=== PATIENT | male | born 1940 | race Caucasian/White ===

== ENCOUNTER → 2016-10-29 | Outpatient (CLI) | payer OTHER, BC ==
[~2016-10-29] VITALS: Ht 175.3 cm; Wt 77.1 kg
[~2016-10-29] MED LIST: ACYCLOVIR 400400 MG; ADULT LOW DOSE81 MG PO; ALLERGY MED; ALLERGY10 M1 PO; ARICEPT10 M1 PO; ASPIRIN81 M2 PO; BACLOFEN 10MG T10 M1 PO; BACLOFEN 10MG T10 MG PO; CARISOPRODOL 3350 MG PO; CENTRUM SILVER1 EAC4 PO; COMPOUNDING CREAM; COZAAR 25 MG TA25 M1 PO; CYMBALTA30 MG PO; CYMBALTA60 MG PO; DEXILANT30 MG PO; DEXILANT60 MG PO; EPIPEN 2-P0.3 MG/0.3 IM; FISH OIL 1,0001 EAC5 PO; FISH OIL 1,001000 M2 PO; FLONASE 0.05%50 MCG NASAL; GLUCOSAMINE HC500 MG PO; HYDROCODONE-AP1 EAC6 PO; IBUPROFEN 800800 M1 PO; MIRALAX255 GM PO; MOBIC15 MG PO; NAPROSYN500 MG PO; NEURONTIN 300300 M1 PO; NORCO 5-325 TA1 EACH PO; NORCO 7.5-3251 EACH PO; NORVASC5 MG PO; OS-CAL 500+D C1 EACH PO; PANTOPRAZOLE SO40 M1 PO; PERCOCET 5-3251 EACH PO; PRAVASTATIN SOD10 MG PO; RA GLUCOSAMINE1 EAC6 PO; RESTASIS1 EACH OP; STOOL SOFTENER1 EAC2 PO; TAMSULOSIN HCL0.4 MG PO; TRAMADOL 50 MG50 MG PO; TRAMADOL200 MG PO; TRILEPTAL150 MG PO; ULTRAM ER200 MG PO; XALATAN2.5 ML OP; [UNRECOGNIZED DRUG - OTHER]; [UNRECOGNIZED DRUG - OTHER] TP
--- NOTE | ~2016-10-29 | HPC ---
[facility] [place] [address] PAIN MANAGEMENT CONSULTATION Name: MARJAN HODGES Crescencio Room #: REG Dayanna Jhaveri#: [id number] Admission: 10/29/16 Attend Phys: Prince Miller DO Discharge: Date of : 42 Report #: [id number] THIS REPORT FOR: //name// CC: Kathy Miller DATE OF SERVICE: 10/29/2016 The patient is a 76-year-old gentleman seen a little greater than a year ago in August 2015. He is seen for symptomatic cervical radiculopathy at that time, given cervical epidural injection, somewhat lost to follow up. The patient returns to pain clinic today complaining of multiple and disparate complaints. In the interval, since we saw him, he had bilateral carpal tunnel surgery in August 2015 and left shoulder surgery in January 2016. He did well with the shoulder though he is complaining of pain in the left shoulder, neck, upper back. He notes the pain is exacerbated with any and all movement. He describes pain as sharp and aching, rates it as 7-8 on a 0-10 visual analog scale. Again, exacerbated with activity including lifting his left arm. The patient did get some recent studies, MRI of the cervical spine was accomplished on 10/17/2016, ordered by Dr. Eran Rios, impression is multilevel degenerative changes throughout the cervical spine with multilevel posterior disk osteophyte complexes contributing to bilateral foraminal narrowing at multiple levels, most prominently at C5-C6 and C6-C7, right greater than left, this would be compatible with more right C5 and C6 for cervical radicular symptoms. EMG was obtained by Dr. Wiley Sagastume on 10/22/2016. Studies suggest median nerve entrapment, status post carpal tunnel surgery. There is ongoing membrane instability in the thenar muscles making it unlikely that the patient has recurrent median nerve entrapment at the wrist. The median nerve parameters are similar to his prior study. His chronic right cervical radiculopathy is noted, most likely involving the C6-C7 roots. PHYSICAL EXAMINATION: Shows a 76-year-old gentleman, BMI is 25.1 kilograms per meter squared. Blood pressure is 146/84, pulse 63, respirations 16. Cranial nerves 2-12 are grossly intact. Cervical range of motion exacerbates pain with a modestly positive limits. Very tender in the splenius capitis, thoracic paravertebral muscles and trapezius bilaterally. This does reproduce pain. Hand grasp is diminished on both sides, thenar eminence appears to be wasting bilaterally, left little greater than right. Passive rotation of the left shoulder is unremarkable, active rotation exacerbates pain. He is little weaker on the left side. He is right hand dominant. ASSESSMENT: 1. Symptomatic cervical radiculopathy by history. Possible component of radicular symptoms ongoing. [facility] [address] [place] [address] PAIN MANAGEMENT CONSULTATION Name: MARJAN HODGES Room #: REG PIERCE Jhaevri#: [id number] Admission: 10/29/16 Attend Phys: Prince Miller DO Discharge: Date of : 42 Report #: [id number] 2. New diagnosis of myofascial pain syndrome in a patient with prior history also of lumbar radiculopathy. 3. Anxiety and depression. RECOMMENDATIONS: 1. We will renew patient's meloxicam to 15 mg 1 a day. We will start Cymbalta 30 mg once a day for chronic widespread pain and what patient self admits is a low level of anxiety and depression. Follow up in 3-4 weeks to evaluate efficacy of medication changes. 2. Acute exacerbation of myofascial pain, new diagnosis. 3. Trigger point injections x 4 today. PROCEDURE NOTE: After written informed consent was obtained, the patient was placed in prone position. Trigger points were identified in the bilateral trapezius and bilateral upper thoracic paravertebral muscles were identified, cleansed with alcohol, using a 25-gauge needle, 40 mg triamcinolone plus 4 mL of 0.5% preservative-free bupivacaine plus 4 mL of 1.5% preservative-free Xylocaine with 1:200,000 epinephrine was injected at all four trigger points distributed equally amongst the 4 discrete muscle groups, needles removed. The area was cleansed, Band-Aids applied. The patient monitored for an appropriate period of time, discharged in good and stable condition. <ELECTRONICALLY SIGNED> By: Prince Miller DO 10/31/16 0758 1511 0409 Prince Miller DO /nt
[2016-10-29 14:01] VITALS: BP 146/84
== END | disposition home or self-care (01) ==
LOC: PAIN 06:56
DX: M79.1 Myalgia (principal); M54.12 Radiculopathy, cervical region; F41.9 Anxiety disorder, unspecified; F32.9 Major depressive disorder, single episode, unspecified; Z87.891 Personal history of nicotine dependence

== ENCOUNTER → 2016-11-19 | Outpatient (CLI) | payer OTHER, BC ==
[~2016-11-19] VITALS: Ht 175.3 cm; Wt 75.8 kg
--- NOTE | ~2016-11-19 | HPC ---
[facility] [place] [address] PAIN MANAGEMENT CONSULTATION Name: MARJAN HODGES Crescencio Room #: REG PIERCE Jhaveri#: [id number] Admission: 11/19/16 Attend Phys: Prince Miller DO Discharge: Date of : 42 Report #: [id number] THIS REPORT FOR: //name// CC: Kathy Miller DATE OF SERVICE: 11/19/2016 The patient is a 76-year-old gentleman, prior seen in the pain clinic 10/29/2016. He has history of cervical radiculopathy, myofascial pain component, depression and cervical spondylosis. Last visit, I started the patient on Cymbalta 30 mg 1 a day for ongoing pain and depression. We did trigger point injections to help with some of his myofascial pain. Returns to pain clinic today. Pain is primarily superior left neck, exacerbated with rotation and side bending. Upper extremity strength is symmetric, no neuropathic symptoms are noted. ASSESSMENT: Symptomatic cervical spondylosis by clinical exam and history, left C2-C3 and C3-C4. Prior diagnostic studies have noted cervical spondylosis throughout the cervical spine. ASSESSMENT: Symptomatic cervical spondylosis. RECOMMENDATION: Left C2-C3, C3-C4 facet joint injections under fluoroscopy today. Followup p.r.n. PROCEDURE NOTE: Lumbar spondylosis. PROCEDURE: Left C2-C3 and C3-C4 cervical facet joint injections under fluoroscopy. PROCEDURE: After written informed consent was obtained, the patient was taken to the fluoroscopy suite and placed in prone position. After sterile prep and drape, skin wheal was raised. A 25-gauge needle was placed to contact posterior aspect of the left C2-C3 and left C3-C4 cervical facets. AP and lateral projections showed good needle placement at the posterior aspect and along the lateral mass mid portion A 2 mg of Decadron plus 1 mL of 0.5% preservative-free bupivacaine was injected at each site. Both needles removed. The area was cleansed, Band-Aids applied. Fluoroscopy time was approximately 15 seconds. The patient monitored for an appropriate period of time, discharged in good and stable condition, noting incremental improvement of baseline pain. <ELECTRONICALLY SIGNED> By: Prince Miller DO 11/21/16 0859 1536 0404 Prince Miller DO /nt
[2016-11-19 12:34] VITALS: BP 155/86
== END ==
LOC: PAIN 06:10
DX: M47.812 Spondylosis without myelopathy or radiculopathy, cervical region (principal); M19.90 Unspecified osteoarthritis, unspecified site; Z87.891 Personal history of nicotine dependence

== ENCOUNTER 2016-12-07 12:30 | Emergency (ER) | payer OTHER, BC ==
[~2016-12-07] VITALS: Ht 175.3 cm; Wt 74.8 kg
[2016-12-07] MEDS ORDERED: NORCO 5-325 TA1 EACH PO (15:06)
[2016-12-07] MEDS ORDERED: PHENERGAN 25 MG25 M1 PO (17:06)
== END 2016-12-07 18:12 | disposition home or self-care (01) ==
LOC: ER 12:30
DX: S43.084A Other dislocation of right shoulder joint, initial encounter (principal); Z98.890 Other specified postprocedural states; Z87.891 Personal history of nicotine dependence; W01.0XXA Fall on same level from slipping, tripping and stumbling without subsequent striking against object, initial encounter; Y93.89 Activity, other specified; Y92.89 Other specified places as the place of occurrence of the external cause; Y99.8 Other external cause status

== ENCOUNTER → 2017-04-25 | Outpatient (CLI) | payer OTHER, BC ==
[~2017-04-25] VITALS: Ht 175.3 cm; Wt 77.9 kg
[~2017-04-25] MED LIST changes: +MIRALAX17 GM PO; +PHENERGAN 25 MG25 M1 PO; +TRAMADOL HCL E200 M1 PO
--- NOTE | ~2017-04-25 | HPC ---
[facility] [place] [address] PAIN MANAGEMENT CONSULTATION Name: MARJAN HODGES Crescencio Room #: REG PIERCE Jhaveri#: [id number] Admission: 04/25/17 Attend Phys: Prince Miller DO Discharge: Date of : 42 Report #: [id number] THIS REPORT FOR: //name// CC: Kathy Miller DATE OF SERVICE: 04/25/2017 HISTORY OF PRESENT ILLNESS: The patient is a pleasant 77-year-old gentleman, prior seen in the pain clinic on 04/08/2017, having left cervical mediated pain secondary to cervical spondylosis. I did a left C2-C3 and left C3-C4 facet joint injection under fluoroscopy. The patient returns to the pain clinic today noting he had very good yet short-term relief following that injection. We elected to proceed with left C2, C3 and C4 medial branch dorsal rami diagnostic block today. The patient notes subjective pain score as 6 on a VAS at present. Again, pain is in the primary left neck and shoulder. Pain in the left shoulder and neck exacerbated with cervical rotation. Also, gets some pain with abduction of the left arm. PHYSICAL EXAMINATION: VITAL SIGNS: Show stable as noted on the EMR. MUSCULOSKELETAL: Cervical range of motion is limited, tender over the cervical facets. Subjective pain going into the "cape" area of the shoulder, though no discernible 2-point discrimination or tactile reproduction of pain over the shoulder. ASSESSMENT: Symptomatic cervical spondylosis. PROCEDURE: Left C2, C3 and C4 medial branch dorsal rami diagnostic block in consideration of radiofrequency neurolysis. DESCRIPTION OF PROCEDURE: After written informed consent was obtained, the patient was taken to the fluoroscopy suite and placed in prone position. After sterile prep and drape, skin was raised. A 22-gauge stylet needle was placed to contact superior articular process of C2, C3 and C4. AP and lateral projections showed good placement adjacent to the C2, C3 and C4 medial branch dorsal rami nerves. A 1 mL of 0.5% preservative-free bupivacaine mixed with 0.5% preservative-free Xylocaine with 1:200,000 epinephrine was injected at each site. All 3 needles were removed. The area was cleansed, Band-Aids applied. The patient monitored for an appropriate period of time, discharged in good and stable condition, noting significant improvement of baseline pain. He was requested to note hourly pain score for the next 3 hours [place] [address] PAIN MANAGEMENT CONSULTATION Name: MARJAN HODGES Room #: REG PIERCE Jhaveri#: [id number] Admission: 04/25/17 Attend Phys: Prince Miller DO Discharge: Date of : 42 Report #: [id number] that report on the nurse's phone line. We will include that in the medical record. Plan on moving forward with RFL next visit. <ELECTRONICALLY SIGNED> By: Prince Miller DO 04/26/17 0731 1220 0101 Prince Miller DO /esequiel
[2017-04-25 10:42] VITALS: BP 128/77
== END | disposition home or self-care (01) ==
LOC: PAIN 06:40
DX: M47.812 Spondylosis without myelopathy or radiculopathy, cervical region (principal); G89.29 Other chronic pain; Z87.891 Personal history of nicotine dependence; Z79.899 Other long term (current) drug therapy; Z79.82 Long term (current) use of aspirin; Z98.890 Other specified postprocedural states

== ENCOUNTER → 2017-05-06 | Outpatient (CLI) | payer OTHER, BC ==
[~2017-05-06] VITALS: Ht 175.3 cm; Wt 76.8 kg
--- NOTE | ~2017-05-06 | HPC ---
[facility] [place] [address] PAIN MANAGEMENT CONSULTATION Name: MARJAN HODGES Crescencio Room #: REG PIERCE Jhaveri#: [id number] Admission: 05/06/17 Attend Phys: Prince Miller DO Discharge: Date of : 42 Report #: [id number] THIS REPORT FOR: //name// CC: Kathy Miller DATE OF SERVICE: 05/06/2017 The patient is a 77-year-old gentleman being treated for symptomatic cervical spondylosis. He had good relief with cervical facet joint injections on 04/08/2017 (left C2-C3 and C3-C4). The relief was good yet transient. I proceeded with medial branch dorsal rami diagnostic blocks, left C2, C3, and C4 on 04/25/2017. The patient again had good predictable relief of neck, shoulder, and arm pain; however, again was transient. He returns to Pain Clinic today desirous of radiofrequency neurolysis of same. Does note that he has some episodic lancinating pain in the left arm and down into the hand. PHYSICAL EXAMINATION: Does show adequate grasp strength that is symmetric, left and right, preserved yet diminished deep tendon reflexes of the biceps, triceps, and brachioradialis. Negative Tinel. Modestly positive limit. ASSESSMENT: Symptomatic cervical radiculopathy on clinical exam and history with symptomatic cervical spondylosis following good transient relief with medial branch dorsal rami diagnostic block. RECOMMENDATION: Proceed with radiofrequency neurolysis of same. PROCEDURE NOTE: Radiofrequency neurolysis left C2, C3 and C4 under fluoroscopy. PROCEDURE: After written informed consent was obtained, the patient was taken to the fluoroscopy suite and placed in prone position. After sterile prep and drape, skin was raised. Three skin wheals with Xylocaine were raised. Three 10-mm RFK needle was placed to contact superior articular process of C2, C3 and C4. AP and lateral projections showed good needle placement adjacent to the C2, C3 and C4 medial branch dorsal rami nerves. After appropriate initial impedance, sensory and motor testing, 1 mL of 1% preservative-free Xylocaine was injected through each of the three needles. Each needle was then heated to 80 degrees centigrade for 90 seconds. A 2 mg of Decadron plus 1 mL of 0.5% preservative-free bupivacaine was then injected through all three needles. All three needles removed. The area was cleansed, Band-Aids applied. Fluoroscopy time was under 20 seconds. The patient was [place] [address] PAIN MANAGEMENT CONSULTATION Name: MARJAN HODGES Crescencio Room #: REG CLI Emilio#: [id number] Admission: 05/06/17 Attend Phys: Prince Miller DO Discharge: Date of : 42 Report #: [id number] room, monitored for an appropriate period of time, discharged in good and stable condition. Follow up in 1 month for reevaluation. By: [id number] Prince Miller DO /esequiel
[2017-05-06 12:28] VITALS: BP 149/85
== END | disposition home or self-care (01) ==
LOC: PAIN 07:10
DX: M47.22 Other spondylosis with radiculopathy, cervical region (principal); M54.16 Radiculopathy, lumbar region; Z87.891 Personal history of nicotine dependence; M47.812 Spondylosis without myelopathy or radiculopathy, cervical region

== ENCOUNTER → 2017-10-17 | Outpatient (CLI) | payer OTHER, BC ==
[~2017-10-17] VITALS: Ht 175.3 cm; Wt 80.2 kg
[~2017-10-17] MED LIST changes: +TIZANIDINE4 MG/1 TA1 PO; +TUMERIC PO
--- NOTE | ~2017-10-17 | HPC ---
[facility] [place] [address] PAIN MANAGEMENT CONSULTATION Name: MARJAN HODGES Crescencio Room #: REG PIERCE Jhaveri#: [id number] Admission: 10/17/17 Attend Phys: Prince Miller DO Discharge: Date of : 42 Report #: [id number] THIS REPORT FOR: //name// CC: Kathy Milelr DATE OF SERVICE: 10/17/2017 The patient is a pleasant 77-year-old gentleman, prior seen for cervical spondylotic concerns. Had good relief with left C2-C3 and C3-C4 cervical facet joint injections in March. Good transient relief with medial branch dorsal rami diagnostic block C2, C3 and C4 on 04/25/2017, progressed to radiofrequency neurolysis 05/06/2017. Somewhat lost to follow up. Returns to pain clinic today noting a different complaint, he has pain in the upper back, left side. Rates his pain a 9 on VAS, medial to the scapula, is exacerbated with raising his left arm and activity. Some relief with medication and heat. He does use Cymbalta 60 mg 1 a day, tramadol 200 mg extended release daily and hydrocodone rarely for breakthrough pain. PHYSICAL EXAMINATION: Shows a 77-year-old gentleman, BMI is 26.1 kilograms per meter squared. He is alert and oriented to person, place and time, judged to be a reasonable historian. Blood pressure 151/81, pulse 64, respirations 16. Cervical range of motion is modestly diminished. Neck pain appears less on physical exam, though he notes no significant relief following the radiofrequency lesioning. Does have decreased range of motion right shoulder, significant decreased strength to right arm resistance to rotation. He has fallen and does have on MRI (10/11/2017) massive full thickness full with a tear involving the distal, anterior, mid and posterior supraspinatus tendon as well as the infraspinatus tendon with tendon retraction medial to the level of the glenohumeral joint, development of moderate to severe supraspinatus and infraspinatus muscle atrophy. He has noted this is on the right shoulder, contralateral to the patient's primary pain concern. Does have a good range of motion, left shoulder and arm. Deep tendon reflexes are preserved. Has exquisite tenderness muscle group medial to the left scapula and overlying latissimus dorsi. Diffuse tenderness across the low back. No discrete trigger points noted. Gait is tandem. Lower extremity strength is preserved. IMPRESSION: Myofascial pain, clinical exam and history. The patient with prior history of cervical spondylosis, chronic pain syndrome requiring complex medication management. We reviewed the fact that opiate medications are being used to provide analgesia adequate to support activities of daily living, not attempting to achieve a specific pain score on the 0-10 Visual Analog Scale. The current opiate medications are providing sufficient analgesia to allow the patient to [address] [address] PAIN MANAGEMENT CONSULTATION Name: CARROLLMARJAN Room #: REG CL Emilio#: [id number] Admission: 10/17/17 Attend Phys: Prince Miller DO Discharge: Date of : 42 Report #: [id number] participate in activities of daily living. The patient is not exhibiting any aberrant behavior suggestive of drug diversion. The patient is not having any adverse reactions to medications. The patient is not suffering from daytime somnolence or mental acuity changes. The patient is managing opiate-induced constipation with appropriate uskt-twa-vytffse agents and dietary considerations. The patient was counseled on concern for caution with operating a motor vehicle while using opiate medications. A physical exam was performed and the patient's functional status was evaluated. All patients with back pain were advised against the bed rest greater than 4 days and were advised to return to normal activities. Pain score assessment was noted and the treatment plan was reviewed with the patient. All current medications, both prescribed and OTC were reviewed and reconciled on the electronic medical record. Tobacco screening was accomplished and smoking cessation was advised when indicated. BMI was noted and diet/exercise modification was recommended for all patients following outside normal parameters. I reviewed with the patient today their responsibilities to safeguard prescription medications, reviewed their responsibility to utilize medications only as prescribed by the physician. They are to seek and receive pain medications only from 1 physician group ( [facility]). They are to use 1 pharmacy and keep the clinic informed if they change pharmacies. Their responsibilities include making followup visits in a timely fashion and to avoid abrupt discontinuation of medication usage. Their responsibilities further include bringing their medications (bottles from the pharmacy with residual pills) to the visit for possible confirmation of pill counts and the patient understands it is their responsibility to submit to random drug screens to ensure both that the medications prescribed are present, and that no other controlled substances are present. All prescriptions provided today were generated electronically. RECOMMENDATIONS: 1. Continue tramadol extended release 200 mg 1 a day, taken the liberty of writing for a 90-day prescription with 1 refill. 2. Continue Cymbalta. We will increase from 60 mg 1 a day to b.i.d. in consideration of the patient's ongoing pain, anxiety and myofascial pain component. 3. We will trial tizanidine 4 mg a half to one tablet 3 times a day with 1 at bedtime, 60 tablets, 1 refill. Lastly, we will renew hydrocodone 5/325, he uses this p.r.n. infrequently. Last prescription for 90 tablets was generated last April. He still has a few tablets left. ASSESSMENT #2: Acute exacerbation of myofascial pain, left mid back latissimus dorsi and mid thoracic paravertebral muscles. [facility] [address] [place] [address] PAIN MANAGEMENT CONSULTATION Name: MARJAN HODGES Room #: [facility] [id number] Admission: 10/17/17 Attend Phys: Prince Miller DO Discharge: Date of : 42 Report #: [id number] RECOMMENDATION: Trigger point injections x 2. PROCEDURE NOTE: After informed consent was obtained, the basic placed in the prone position. Skin overlying the 2 discrete trigger points was identified. Area was cleansed with alcohol, using a 25-gauge needle, 40 mg triamcinolone plus 5 mL of 0.5% preservative-free bupivacaine plus 5 mL of 1.5% preservative-free Xylocaine with 1:200,000 epinephrine was injected equally amongst the 2 muscle groups at all trigger points identified. Needle was removed, area was cleansed, Band-Aid was applied. The patient monitored for appropriate period of time. No signs of pneumothorax were noted. The patient was told to report to the ER if he gets shortness of breath, acute chest pain, etc. Follow up as needed, otherwise. <ELECTRONICALLY SIGNED> By: Prince Miller DO 10/21/17 0824 1512 Prince Miller DO /esequiel
[2017-10-17 09:45] VITALS: BP 151/81
== END | disposition home or self-care (01) ==
LOC: PAIN 08:06
DX: M79.1 Myalgia (principal); G89.4 Chronic pain syndrome; M47.892 Other spondylosis, cervical region; F41.9 Anxiety disorder, unspecified; Z79.891 Long term (current) use of opiate analgesic; Z98.890 Other specified postprocedural states; Z87.891 Personal history of nicotine dependence; Z79.82 Long term (current) use of aspirin; Z79.899 Other long term (current) drug therapy

== ENCOUNTER → 2017-11-15 | Outpatient (CLI) | payer OTHER, BC ==
[~2017-11-15] VITALS: Ht 175.3 cm; Wt 76.3 kg
--- NOTE | ~2017-11-15 | HPC ---
[facility] [address] [place] [address] PAIN MANAGEMENT CONSULTATION Name: MARJAN HODGES Crescencio Room #: REG PIERCE Jhaveri#: [id number] Admission: 11/15/17 Attend Phys: Prince Miller DO Discharge: Date of : 42 Report #: [id number] THIS REPORT FOR: //name// CC: Kathy Miller The patient is a very pleasant 77-year-old gentleman typically treated for cervical spondylosis, history of right rotator cuff tear, myofascial pain requiring complex medication management. Last seen in the pain clinic on 10/17/2017. Did trigger points at that time. Prior back in April, we had done radiofrequency neurolysis at left C2-C3 and C3-C4. This afforded some transient relief, but the pain has recurred. He continues with tramadol 200 mg extended release, Cymbalta daily, tizanidine p.r.n. and hydrocodone 5/325, fairly rare use. Notes pain is becoming more problematic in the neck with a trigger point in the left trapezius. Pain is primarily in the upper neck, exacerbated with cervical rotation and sidebending. No radicular symptoms are noted at this time. While he does have a history of right rotator cuff tear, he actually has pretty good strength and range of motion in that shoulder. Suggested with his good range of motion and nominal pain from the rotator cuff, that he defer surgery. ASSESSMENT: Symptomatic cervical spondylosis by clinical exam and history. RECOMMENDATIONS: Bilateral C2-C3 and C3-C4 facet joint injections under fluoroscopy. This seems to correlate with the primary area of pain. Continue hydrocodone p.r.n. I have taken the liberty of renewing prescription for 5/325 hydrocodone tablets #75. Continue tizanidine and tramadol (he has another month of tramadol prescription). We will have the patient follow up with one of my [facility], I told him I am leaving the practice at the end of the month. ASSESSMENT: Symptomatic cervical spondylosis. PROCEDURE: Bilateral C2-C3 and C3-C4 facet joint injections under fluoroscopy. PROCEDURE NOTE: After written informed consent was obtained, the patient was taken to fluoroscopy suite, placed in prone position. After sterile prep and drape, skin wheal was raised. A 22-gauge stylet needle was placed to contact the posterior aspect of the left C2-C3 and left C3-C4 cervical facets in the middle of the lateral mass. AP and lateral projections showed good needle placement at the posterior aspect of the joint. Procedure was repeated on the right side. All four needles were injected with 2 mg of Decadron plus 1 mL of 0.5% preservative-free bupivacaine. All four needles were removed. The area was cleansed. Band-Aid was applied. The patient monitored for an appropriate [address] [address] PAIN MANAGEMENT CONSULTATION Name: CARROLLMARJAN Room #: REG PIERCE Jhaveri#: [id number] Admission: 11/15/17 Attend Phys: Prince Miller DO Discharge: Date of : 42 Report #: [id number] period of time, discharged in good and stable condition. Fluoroscopy time was under 20 seconds. <ELECTRONICALLY SIGNED> By: Prince Miller DO 11/18/17 0709 [id number] 1844 Prince Miller DO /nt
[2017-11-15 08:25] VITALS: BP 131/81
== END | disposition home or self-care (01) ==
LOC: PAIN 07:19
DX: M47.812 Spondylosis without myelopathy or radiculopathy, cervical region (principal); G89.29 Other chronic pain; Z79.899 Other long term (current) drug therapy; Z98.890 Other specified postprocedural states; Z87.891 Personal history of nicotine dependence; Z79.82 Long term (current) use of aspirin; Z91.030 Bee allergy status

== ENCOUNTER → 2017-12-20 | Outpatient (CLI) | payer OTHER, BC ==
[~2017-12-20] VITALS: Ht 175.3 cm; Wt 78.1 kg
--- NOTE | ~2017-12-20 | HPC ---
[facility] [place] [address] PAIN MANAGEMENT CONSULTATION Name: MARJAN HODGES Crescencio Room #: REG PIERCE Jhaveri#: [id number] Admission: 12/20/17 Attend Phys: Prince Miller DO Discharge: Date of : 42 Report #: [id number] THIS REPORT FOR: //name// CC: Kathy Miller DATE OF SERVICE: 12/20/2017 The patient is a 77-year-old gentleman well known to [facility], being treated for multiple pain concerns. Originally seen in 2010 for myofascial pain involving the sternocleidomastoid, cervical spondylosis, component of neuropathic pain, and axial back pain status post lumbar decompressive laminectomy. He has been managed with multiplicity of interventions and medications. For the past 2 years or more, he has been stable, taking tramadol ER 200 mg 1 a day, Cymbalta 60 mg b.i.d. (titrated up from a lower dose), tizanidine 4 mg half to one tablet b.i.d. for spasm and hydrocodone 5/325 one tablet p.r.n. extreme pain, typically 90 tablets lasts about 3 months. Interventions have included lumbar epidural injections in 2012 through 2013. Cervical facet and cervical epidural injections in [id number]. He has had trigger point injections in 2017. At the end of last year, he had pain in the left side of his neck, cervical facet joint injections and medial branch dorsal rami diagnostic blocks in March-April, afforded good transient relief. We proceeded with radiofrequency neurolysis, left C2, C3, and C4 on 05/06/2017. The patient was lost to follow up for about 5 months. He is having increasing cognitive impairment. His tells that he had some good relief following the cervical facet joint injections at that time. Last visit on 11/15/2017, he was having ongoing pain in his neck. I performed bilateral C2-C3 and C3-C4 cervical facet joint injections. The patient feels that did not afford relief. We had a prolonged visit today, greater than 25 minutes was spent with the patient from 10:35-11:00 a.m. The patient notes pain to the left scapula, neck, and shoulders. States pain in left hip is relatively nominal. Reports 30% relief following the facet joint injections for 2 weeks. Rates his pain 8-9 on a VAS. Describes sharp and dull pain that is present in the morning and gets worse throughout the day. He is a difficult historian, seems to suffer from poor memory and disjointed history. PHYSICAL EXAMINATION: Shows a 77-year-old gentleman, BMI is 25.4 kg/m2. Blood pressure 150/82, pulse 67, respirations 18. Cervical range of motion is generally full; however, all range of motion exacerbates neck, shoulder, and [address] [address] PAIN MANAGEMENT CONSULTATION Name: CARROLLMARJAN Crescencio Room #: REG [facility] Emilio#: [id number] Admission: 12/20/17 Attend Phys: Prince Miller DO Discharge: Date of : 42 Report #: [id number] back pain. Upper extremity strength is preserved, though he has slightly limited right abduction, has a history of right rotator cuff tear and arthritis. Reversed total shoulder arthroplasty (right) has been suggested to the patient. He is hesitant to move forward. Upper extremity strength is otherwise generally symmetric about 4/5 to all muscle groups tested. Deep tendon reflexes are generally preserved. Tinel's is negative. Has tenderness in the left suprascapular, infrascapular, and mid thoracic paravertebral muscles. No skin integument changes are noted. Rises from chair easily. Gait is tandem. We reviewed the fact that opiate medications are being used to provide analgesia adequate to support activities of daily living, not attempting to achieve a specific pain score on the 0-10 Visual Analog Scale. The current opiate medications are providing sufficient analgesia to allow the patient to participate in activities of daily living. The patient is not exhibiting any aberrant behavior suggestive of drug diversion. The patient is not having any adverse reactions to medications. The patient is not suffering from daytime somnolence or mental acuity changes. The patient is managing opiate-induced constipation with appropriate [id number] agents and dietary considerations. The patient was counseled on concern for caution with operating a motor vehicle while using opiate medications. A physical exam was performed and the patient's functional status was evaluated. All patients with back pain were advised against the bed rest greater than 4 days and were advised to return to normal activities. Pain score assessment was noted and the treatment plan was reviewed with the patient. All current medications, both prescribed and OTC were reviewed and reconciled on the electronic medical record. Tobacco screening was accomplished and smoking cessation was advised when indicated. BMI was noted and diet/exercise modification was recommended for all patients following outside normal parameters. I reviewed with the patient today their responsibilities to safeguard prescription medications, reviewed their responsibility to utilize medications only as prescribed by the physician. They are to seek and receive pain medications only from 1 physician group ( [facility]). They are to use 1 pharmacy and keep the clinic informed if they change pharmacies. Their responsibilities include making followup visits in a timely fashion and to avoid abrupt discontinuation of medication usage. Their responsibilities further include bringing their medications (bottles from the pharmacy with residual pills) to the visit for possible confirmation of pill counts and the patient understands it is their responsibility to submit to random drug screens to ensure both that the medications prescribed are present, and that no other controlled substances are present. All prescriptions provided today were generated electronically. ASSESSMENT: [address] [address] PAIN MANAGEMENT CONSULTATION Name: MARJAN HODGES Room #: [facility] [id number] Admission: 12/20/17 Attend Phys: Prince Miller DO Discharge: Date of : 42 Report #: [id number] 1. Chronic axial back pain, cervical spondylosis without myelopathy, right rotator cuff tear and shoulder OA, requiring complex medication management. Recommendation: Long discussion with the patient today about therapeutic option. Ultimately, we will like to continue tramadol 200 mg extended release 1 a day; hydrocodone rare use 5/325, dispensed 90 tablets for 90 days; continue tizanidine 4 mg half to one tablet b.i.d. for spasm; and Cymbalta 60 mg b.i.d. Follow up in 3 months with one of the [facility] partners. 2. Acute exacerbation of myofascial pain with trigger points x 3 in the left supraspinatus, infraspinatus, and mid thoracic paravertebral muscles. Recommendation: Trigger point injections x 3. PROCEDURE: After written informed consent was obtained, the patient was placed in seated position. Skin overlying the 3 aforementioned muscle groups and trigger points were cleansed with alcohol. Using 25-gauge needle, 30 mg triamcinolone plus 6 mL of 0.5% preservative-free bupivacaine was injected into and around the triggers. Needle was removed. The area was cleansed, Band-Aids applied. The patient monitored for an appropriate period of time, discharged in good and stable condition. <ELECTRONICALLY SIGNED> By: Prince Miller DO 12/23/17 0659 [id number] Prince Miller DO /nt
[2017-12-20 10:28] VITALS: BP 150/82
== END | disposition home or self-care (01) ==
LOC: PAIN 06:55
DX: M79.1 Myalgia (principal); M54.5 Low back pain; G89.29 Other chronic pain; M47.812 Spondylosis without myelopathy or radiculopathy, cervical region; M19.011 Primary osteoarthritis, right shoulder; Z98.890 Other specified postprocedural states; Z79.891 Long term (current) use of opiate analgesic; Z79.899 Other long term (current) drug therapy; Z87.891 Personal history of nicotine dependence

== ENCOUNTER → 2018-04-15 | Outpatient (CLI) | payer OTHER, BC ==
[~2018-04-15] VITALS: Ht 175.3 cm; Wt 79.8 kg
[~2018-04-15] MED LIST changes: +DICLOFENAC POTA50 MG PO; +MEDROLDOSEPACK PO
--- NOTE | ~2018-04-15 | HPC ---
[facility] [address] [place] [address] PAIN MANAGEMENT CONSULTATION Name: MARJAN HODGES Room #: REG Dayanna Thomas.#: [id number] Admission: 04/15/18 Attend Phys: Clint Miller DO Discharge: Date of : 42 Report #: [id number] THIS REPORT FOR: //name// CC: BISI Sanabria DATE OF SERVICE: 04/15/2018 REFERRING PHYSICIAN: Bisi Sanabria MD CHIEF COMPLAINT: Generalized osteoarthritic pain. HISTORY OF PRESENT ILLNESS: As you know, the patient is a very pleasant 78-year-old male who returns today in followup visit reporting pain score of 7/10. He has localizing pain over his left elbow, bilateral proximal thumbs, right fifth digit, cervical area, mid back area, low back area and bilateral hips. He returns today to discuss options for treatment for this generalized pain secondary to osteoarthritis and myofascial symptoms. The patient, as you are aware, has received treatment options with my partner, Dr. Prince Miller for years, treating his generalized pain issues with either medications or injections. He returns today with 7/10 pain with widely diffuse pain issues. He wishes to discuss options for treatment. ALLERGIES: NO KNOWN DRUG ALLERGIES. CURRENT MEDICATIONS: Tizanidine 4 mg up to once or twice a day p.r.n., duloxetine 60 mg per day, MiraLax 17 g per day, aspirin 81 mg per day, omega-3 fish oil 1 tab per day, glucosamine 500 mg once a day, fluticasone 2 sprays each nostril per day, pantoprazole 40 mg per day, amlodipine 5 mg per day, cetirizine 10 mg per day, losartan 25 mg per day, cyclosporine 1 drop each eye per day, benazepril 10 mg per day, acyclovir 400 mg per day, terazosin 0.4 mg per day, latanoprost 1 drop each eye per day. SOCIAL HISTORY: The patient is a reformed smoker. He denies IV or illicit drug use. He denies any chronic alcohol use. He is retired. He is unaccompanied today. IMAGING: There is no new imaging available. PQRS, the patient has known osteoarthritis of the bilateral shoulders, bilateral elbows, bilateral wrists, bilateral proximal thumbs, low back, bilateral hips, bilateral knees. No diagnosis of rheumatoid arthritis. He places pain intensity is 7/10. He is not a fall risk, has fallen in the last 3 months. He is not on blood thinners, history of hypertension. He has been on opioids for greater than 6 weeks. He is on moderate risk [place] [address] PAIN MANAGEMENT CONSULTATION Name: MARJAN HODGES Room #: BENJAMIN Jhaveri#: [id number] Admission: 04/15/18 Attend Phys: Clint Miller DO Discharge: Date of : 42 Report #: [id number] placing his pain impact score at 61 of 70 near complete interference of daily activities secondary to pain. PHYSICAL EXAMINATION: VITAL SIGNS: Blood pressure 136/91, pulse 80, respiratory rate 16 and unlabored. The patient is 98% on room air. Height 5 feet 9 inches tall, weight 176 pounds, BMI calculated at 26.0. GENERAL: Well-developed, well-nourished, well-hydrated 77-year-old male. He appears his stated age. He is placing current pain score at 7/10. HEENT: Normocephalic, atraumatic. Pupils equal, round, reactive to light. EXTREMITIES: Show no clubbing, no cyanosis, no edema. MUSCULOSKELETAL: The patient has multiple tender points noted that appear to be myofascial in origin, but also, there are noted arthritic changes mainly at the proximal portion of the thumbs certainly at the metacarpophalangeal joint on the right. There is some palpatory tenderness in the cervical region that appears to be myofascial in origin, also some palpatory tenderness over the left elbow that appears to be arthritic in origin. ASSESSMENT: 1. Generalized osteoarthritis. 2. Myofascial pain. 3. Cervical spondylosis without radiculopathy. 4. Chronic pain syndrome requiring complex medication management. 5. Chronic intractable pain. PLAN: 1. The patient returns today in followup visit with widely diffuse pain, both myofascial and osteoarthritic in nature. We have discussed with the patient we can certainly inject a couple of the areas that he has pain directly, but this will not address his baseline widespread pain. I would recommend a change in medication management initially. If in 2 weeks, he is not noticing improvement with the medication changes that we would recommend, then we can look towards injections into the major pain generators, but the patient does understand. We cannot inject the 23 different places he has showed us today. The patient was amenable to trial medications for the next 2 weeks. 2. The patient was started on Medrol Dosepak 1 pack to be taken as directed. This will reduce the inflammatory process the patient is experiencing and potentially improve not only his myofascial symptoms, but certainly will address his osteoarthritic pain. The patient will begin the titration pack immediately. 3. The patient was provided a prescription of diclofenac potassium 50 mg dose 1 tab p.o. t.i.d. He is to initiate this medication when he reaches the last 2 days of his Medrol Dosepak. This will then become the maintenance medication for anti-inflammatory effects. He is to watch for side effects of dyspepsia, worsening blood pressure, lower extremity edema with use of therapy. If he notes any side effects, discontinue immediately, call for further instructions. No side effects, continue the medication as directed for the next [address] weeks[address] [address] PAIN MANAGEMENT CONSULTATION Name: MARJAN HODGES Room #: REG [facility].#: [id number] Admission: 04/15/18 Attend Phys: Clint Miller DO Discharge: Date of : 42 Report #: [id number] patient was given #90 tablets a full month of medication and refills were applied if he feels this is an effective option for treatment. 4. We will see the patient back in followup visit in 2 weeks. We will review the efficacy of the medication provided. If interventional treatments are necessary, we will discuss at that time. Again, we are limited to the amount of injections we can provide in any given time frame due to steroid exposure. 5. We will see the patient back in followup visit 2 weeks. By: [id number] Clint Miller DO /nt
[2018-04-15 13:00] VITALS: BP 136/91
== END ==
LOC: PAIN 07:17
DX: M15.0 Primary generalized (osteo)arthritis (principal); M79.18 Myalgia, other site; M47.812 Spondylosis without myelopathy or radiculopathy, cervical region; G89.4 Chronic pain syndrome; Z79.899 Other long term (current) drug therapy

== ENCOUNTER → 2018-05-07 | Outpatient (CLI) | payer OTHER, BC ==
[~2018-05-07] VITALS: Ht 175.3 cm; Wt 81.4 kg
--- NOTE | ~2018-05-07 | HPC ---
[facility] [place] [address] PAIN MANAGEMENT CONSULTATION Name: MARJAN HODGES [id number] Admission: 05/07/18 Attend Phys: Clint Miller DO Discharge: Date of : 42 Report #: [id number] THIS REPORT FOR: //name// CC: Clint Sanabria MD DATE OF SERVICE: 05/07/2018 REFERRING PHYSICIAN: Kathy Sanabria MD CHIEF COMPLAINT: Generalized osteoarthritis pain, left elbow pain. HISTORY OF PRESENT ILLNESS: As you know, the patient is a very pleasant 78-year-old male who returns today in followup visit reporting a pain score of around 7-8/10. Indicates pain is in the left scapula, left shoulder, right shoulder, bilateral hands, hips, left wrist, left thumb, left elbow and left ring finger. He describes the pain as chronic, sharp, dull and aching in sensation, exacerbated with activity, movement, sitting and leaning back, improves with medications and heat. He returns today in followup visit to undergo a left intra-articular elbow injection and to receive refills of medications for his generalized osteoarthritic symptoms. The patient has not seen a securities dealer nor has he had a full workup for rheumatologic issues. ALLERGIES: No known drug allergies. CURRENT MEDICATIONS: Tizanidine 4 mg b.i.d. p.r.n., duloxetine 60 mg p.o. q. day, MiraLax 17 grams per day, aspirin 81 mg per day, omega-3 fish oil 1 tab per day, glucosamine 500 mg once a day, fluticasone 2 sprays each nostril per day, pantoprazole 40 mg per day, amlodipine 5 mg per day, cetirizine 10 mg per day, losartan 25 mg per day, cyclosporine one drop each eye per day, benazepril 10 mg once a day, acyclovir 400 mg once a day, Tamusilin 0.4 mg qday, latanoprost one drop each eye per day, diclofenac 50 mg p.o. t.i.d. SOCIAL HISTORY: The patient is a reformed smoker. He denies IV or illicit drug use. Denies any chronic alcohol use. He is retired. He is accompanied by his who is present in room today. IMAGING: No new imaging available. PQRS: The patient has known osteoarthritis of bilateral shoulders, bilateral elbows, bilateral wrists, bilateral proximal thumbs, low back and bilateral hips and bilateral knees. No diagnosis of rheumatoid arthritis. He places pain score today at 7-8/10. He is not a fall risk, has not had a fall in the last 3 months. He is not on blood thinners. He is treated for hypertension. He has been on opioids for longer than 6 weeks. He is [place] [address] PAIN MANAGEMENT CONSULTATION Name: MARJAN HODGES Room #: REG [facility] [id number] Admission: 05/07/18 Attend Phys: Clint Miller DO Discharge: Date of : 42 Report #: [id number] addiction. He is placing his pain impact score at 61/70, severe, near complete interference of daily activities secondary to pain. PHYSICAL EXAMINATION: VITAL SIGNS: Blood pressure 146/95, pulse 66, respiratory rate 18 and unlabored. The patient is 97% on room air. Height 5 feet 9 inches tall, weight 179.4 pounds, BMI calculated 26.5. GENERAL: Well-developed, well-nourished, well-hydrated 78-year-old male appearing stated age, placing pain at 7-8/10. HEENT: Normocephalic, atraumatic. Pupils equal, round, reactive to light. EXTREMITIES: Show no clubbing, no cyanosis, no edema. MUSCULOSKELETAL: The patient has multiple tender points that appear to be myofascial in origin throughout the thoracolumbar area. Noted arthritic changes, mainly in the proximal portion of the thumbs distal to the metacarpophalangeal joint, mainly right, but also present left. There is palpatory tenderness over the left elbow, both lateral and medial. Tenderness across the cervical spine, no spinous process tenderness. ASSESSMENT: 1. Generalized osteoarthritis. 2. Myofascial pain. 3. Cervical spondylosis without radicular symptoms. 4. Lumbar spondylosis without radicular symptoms. 5. Chronic pain syndrome. 6. Complex medication management. 7. Chronic intractable pain. PLAN: 1. The patient returns today in followup visit with increasing left elbow pain both medial and laterally. He has requested from our services to undergo injection of the area to improve symptoms. At this point, he states that his left elbow pain is the greatest promoter of pain, even greater than his typical myofascial symptoms above the left scapula. He returns requesting injection in this area. He has been advised the risks and benefits of left elbow intra-articular injections. These risks include but are not necessarily limited to bleeding, bruising, infection, worsening pain, no relief of pain, also risk of temporary or permanent muscle weakness, temporary or permanent joint irritation and possible . The patient states he understood and wished to proceed. 2. The patient was started on diclofenac at last visit 50 mg t.i.d. dosing. Recommend continue this medication. He has refills, does not need a refill at this time. 3. 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 This is to be used only transiently and only when his pain is [facility] [address] [place] [address] PAIN MANAGEMENT CONSULTATION Name: CARROLLMARJAN Room #: REG PIERCE Jhavrei#: [id number] Admission: 05/07/18 Attend Phys: Clint Miller DO Discharge: Date of : 42 Report #: [id number] intolerable, not to rely on the medication prophylactically. He was given a prescription of #90 tablets to take on an as needed basis. This should last greater than one month. 4. I have requested the patient to return to see his PCP and begin referral processes for Rheumatology. The patient has not had a rheumatologic workup and his generalized issues do not fit with weightbearing osteoarthritis symptoms. This appears to be more related to generalized pain in the joints that needs further evaluation. We will defer to the primary team for further referrals to Rheumatology. 5. We will see the patient back in followup visit on an as needed basis for medication management and to address possible left myofascial symptoms about the scapula. PROCEDURE NOTE DESCRIPTION OF PROCEDURE: Left intra-articular elbow injection. After obtaining written consent, the patient was placed in a seated position. The area overlying the left elbow was prepped and draped in aseptic fashion using chlorhexidine. A 27-gauge 1-1/4 inch needle was then used to anesthetize the skin directly over the lateral portion of the elbow and the medial portion of the elbow with 1 mL of 1% lidocaine at both sites. A 27-gauge 1-1/4 inch needle was then used to advance into the medial aspect of the left elbow. Needle was advanced without complication. After negative aspiration for heme, 1 mL of a solution containing 1 mL 40 mg per mL, 40 mg total triamcinolone and 2 mL bupivacaine 0.5% injected slowly. Needle retracted nursing home, flushed with 1 mL of 1% lidocaine and removed. Attention was then directed to the medial aspect of the left elbow. The 27-gauge 1-1/4 inch needle was then used to advance into the medial aspect of the elbow joint. Needle was advanced until reaching its position. After negative aspiration for heme, the remainder of the injectate indicated above was utilized, 1 mL total given. Needle was retracted nursing home, flushed with 1 mL of 1% lidocaine and removed. The patient tolerated the procedure well, carefully escorted to the recovery room in stable condition. After meeting discharge criteria, the patient was discharged home. <ELECTRONICALLY SIGNED> By: Clint Miller DO 05/14/18 0814 [id number] Clint Miller DO /nt
[2018-05-07 10:24] VITALS: BP 146/95
== END | disposition home or self-care (01) ==
LOC: PAIN 06:35
DX: M19.022 Primary osteoarthritis, left elbow (principal); M19.021 Primary osteoarthritis, right elbow; M19.012 Primary osteoarthritis, left shoulder; M19.011 Primary osteoarthritis, right shoulder; M19.032 Primary osteoarthritis, left wrist; M19.031 Primary osteoarthritis, right wrist; M19.042 Primary osteoarthritis, left hand; M19.041 Primary osteoarthritis, right hand; M16.0 Bilateral primary osteoarthritis of hip; M17.0 Bilateral primary osteoarthritis of knee; M79.18 Myalgia, other site; M47.812 Spondylosis without myelopathy or radiculopathy, cervical region; M47.816 Spondylosis without myelopathy or radiculopathy, lumbar region; G89.29 Other chronic pain; I10 Essential (primary) hypertension; Z79.899 Other long term (current) drug therapy; Z79.891 Long term (current) use of opiate analgesic; Z91.09 Other allergy status, other than to drugs and biological substances; Z79.82 Long term (current) use of aspirin; Z87.891 Personal history of nicotine dependence

== ENCOUNTER → 2018-05-21 | Outpatient (CLI) | payer OTHER, BC ==
[~2018-05-21] VITALS: Ht 175.3 cm; Wt 79.7 kg
--- NOTE | ~2018-05-21 | HPC ---
[facility] [place] [address] PAIN MANAGEMENT CONSULTATION Name: MARJAN HODGES Room #: REG [facility] Martha.#: [id number] Admission: 05/21/18 Attend Phys: Clint Miller DO Discharge: Date of : 44 Report #: [id number] THIS REPORT FOR: //name// CC: Clint Sanabria MD DATE OF SERVICE: 05/21/2018 REFERRING PHYSICIAN: Kathy Sanabria M.D. CHIEF COMPLAINT: Generalized osteoarthritis and myofascial pain. HISTORY OF PRESENT ILLNESS: As you know, the patient is a very pleasant 78-year-old male who returns today in followup visit to address myofascial symptoms involving his periscapular area on the left. At last visit, we discussed the possibility of having the patient to undergo trigger point injections to address these myofascial symptoms. He has had trigger points in the past with good efficacy. He returns today in followup visit requesting to undergo this procedure. He is placing his pain somewhere between 7-8/10, exacerbated with movement and use of his left upper extremity. He denies injury or trauma to the area may have led to symptom occurrence. ALLERGIES: No known drug allergies. CURRENT MEDICATIONS: Tizanidine, duloxetine, MiraLax, aspirin, omega 3 fish oil, glucosamine, fluticasone, pantoprazole, amlodipine, cetirizine, losartan, cyclosporine, benazepril, acyclovir, terazosin and latanoprost. SOCIAL HISTORY: The patient is a reformed smoker. Denies IV or illicit drug use. Denies any chronic alcohol use. He is retired. He is unaccompanied today. IMAGING DATA: No new imaging available. PQRS: The patient has known osteoarthritis of the bilateral shoulders, bilateral elbows, bilateral wrists, bilateral proximal thumbs, low back, bilateral hips and bilateral knees. He has got no diagnosis of rheumatoid arthritis. He is placing pain intensity today at somewhere between 7-8/10. He is not a fall risk, has not had a fall in the last 3 months. He is not on blood thinners. He is treated for hypertension. He is on opioids and has been for greater than 6 weeks. He is on moderate risk for opioid addiction. PAIN SCORE: He is placing his pain impact tool at 61/70, severe interference of daily activities secondary to pain. [address] [address] PAIN MANAGEMENT CONSULTATION Name: MARJAN HODGES Room #: REG CLDayanna Jhaveri#: [id number] Admission: 05/21/18 Attend Phys: Clint Miller DO Discharge: Date of : 44 Report #: [id number] PHYSICAL EXAMINATION: VITAL SIGNS: Blood pressure 125/85, pulse 63 and respiratory rate 14 and unlabored. The patient is 97% on room air. Height 5 feet 9 inches tall, weight 175.6 pounds and BMI calculated 25.9. GENERAL: Well-developed, well-nourished and well-hydrated 78-year-old male appearing stated age, placing current pain score 7-8/10. HEENT: Normocephalic and atraumatic. Pupils equal, round and reactive to light. EXTREMITIES: Show no clubbing, no cyanosis and no edema. MUSCULOSKELETAL: Multiple tender points are again noted over the paraspinal musculature of the upper thoracic and scapular area. I have been able to elicit 7 trigger points that caused intensification of the patient's typical pain. He has multiple tender points throughout the joints of the upper extremities including shoulders, elbows, bilateral wrists and bilateral proximal thumbs. ASSESSMENT: 1. Generalized osteoarthritis. 2. Myofascial pain. 3. Muscle spasms of the thoracic musculature and scapular area. 4. Cervical spondylosis without radiculopathy. 5. Chronic pain requiring, complicated medication management. 6. Chronic intractable pain. PLAN: 1. The patient returns today in followup visit to undergo trigger point injections of the 7 trigger points identified in the thoracic paraspinal musculature and scapular area on the left. He has done very well with these injections performed by my partner, Dr. Prince Miller. He returns today in followup visit to undergo injection in the area today in hopes of improving symptoms. I have advised the patient of the risks and benefits of this procedure. These risks include but are not necessarily limited to bleeding, bruising, infection, worsening pain, no relief of pain, also risk of temporary or permanent muscle weakness, temporary or permanent nerve damage, possible pneumothorax and . The patient states understood and wished to proceed. 2. The patient was provided refill prescription of his hydrocodone 5/325 one tab p.o. q. 4 hours p.r.n. for pain, I have given the patient #90 tablets, releases in 2 weeks and 6 weeks, which is 2 months' worth of medication. He is not to fill this medication for 2 weeks and then again in 6 weeks. 3. We will see the patient back in followup visit on an as needed basis for possible interventional treatments; otherwise, we will see him back for medication management in 2 months. PROCEDURE NOTE DESCRIPTION OF PROCEDURE: Trigger point injections. [address] [address] PAIN MANAGEMENT CONSULTATION Name: MARJAN HODGES Room #: REG PIERCE Jhaveri#: [id number] Admission: 05/21/18 Attend Phys: Clint Miller DO Discharge: Date of : 44 Report #: [id number] After obtaining written consent, the patient was placed in a seated position. By palpating using a single finger, 7 trigger points were identified that caused the patient's typical radiating pain pattern. The area overlying the trigger points were then prepped with chlorhexidine. A 27-gauge 1-1/4 inch needle was used to advance towards each of the trigger points. The needle was advanced until the typical radiating pain pattern was reproduced. After negative aspiration for heme, 1 mL of a solution containing 1 mL 40 mg per mL, 40 mg total triamcinolone and 6 mL of bupivacaine 0.5% was injected in a fanned out distribution. Needle was retracted in sterile manner. Bandages were placed on each of the injection sites. The injections were done at all 7 trigger points without complication. The patient tolerated procedure well, carefully escorted to recovery room in stable condition. No apparent complications. After meeting discharge criteria, the patient discharged home. By: [id number] Clint Miller DO /nt
[2018-05-21 09:13] VITALS: BP 125/85
== END | disposition home or self-care (01) ==
LOC: PAIN 08:23
DX: M79.18 Myalgia, other site (principal); G89.29 Other chronic pain; M47.812 Spondylosis without myelopathy or radiculopathy, cervical region; I10 Essential (primary) hypertension; M19.90 Unspecified osteoarthritis, unspecified site; Z79.891 Long term (current) use of opiate analgesic; Z79.82 Long term (current) use of aspirin; Z98.890 Other specified postprocedural states; Z87.891 Personal history of nicotine dependence; Z79.899 Other long term (current) drug therapy

== ENCOUNTER → 2021-03-23 | Outpatient (CLI) | payer OTHER | LOC: CAT 15:06 | PROVIDERS: ATTEND Internal Medicine Cardiovascular Disease | DX: Z13.6 Encounter for screening for cardiovascular disorders (principal) ==